=== PATIENT | male | born 1985 | race Caucasian/White ===

== ENCOUNTER 2020-12-21 20:51 | Emergency (ER) | payer SELFPAY ==
[~2020-12-21] VITALS: Ht 180.3 cm; Wt 68.0 kg
[2020-12-21 20:56] VITALS: BP 98/72
[2020-12-21] MEDS ORDERED: BACITRACIN ZINC OINT UDPKT TOP ONE (22:15)
== END 2020-12-21 23:49 | disposition home or self-care (01) ==
LOC: ER 20:51
DX: R44.0 Auditory hallucinations (principal)
CPT/HCPCS: 99283